=== PATIENT | female | born 1935 | race Caucasian/White ===

== ENCOUNTER 2017-01-24 20:18 | Inpatient (IN) | payer MEDICARE, BC ==
[2017-01-24] MEDS ORDERED: SODIUM CHLORIDE 0.9% 1,000 ML IV STA (20:58)
[2017-01-24] MEDS ORDERED: RX INFO: IV CONTRAST WAS GIVEN 1 EACH MISC MISCELLANE PRN (20:59)
--- NOTE | 2017-01-24 21:21 | ED ---
General Adult HPI - General Chief complaint: Shortness of Breath Stated complaint: AGATHA Time Seen by Provider: 01/24/17 20:28 Source: EMS, RN notes reviewed, old records reviewed Mode of arrival: EMS - History of Present Illness Initial comments: This is a 81-year-old female to the ER for evaluation of shortness of breath. Patient has continued shortness of breath. Shortness of breath started after doing a workout this afternoon. Patient was swimming and doing aerobics like she doesn't normal basis. Patient states she didn't know more exercise and normal. Distress of breath did not begin to she soonest or exercise. Patient denies chest pain but continues to complain shores restless when taking a deep breath. No recent fevers or congestion October no sick contacts. Patient denies prior episode of similar symptoms. She did rest originally after the symptoms began but the shortness of breath has persisted. Patient thought she may have had low blood sugar did take a sugar pill with no help - Related Data Home Medications Medication Instructions Recorded Confirmed Aspirin 81 mg PO DAILY 11/18/13 01/24/17 Atorvastatin [Lipitor] 40 mg PO HS 11/18/13 01/24/17 Cholecalciferol [Vitamin D3] 1,000 unit PO DAILY 11/18/13 01/24/17 Isosorbide Mononitrate [Imdur] 30 mg PO DAILY 11/18/13 01/24/17 Levothyroxine Sodium [Synthroid] 50 mcg PO DAILY 11/18/13 01/24/17 Metoprolol Tartrate [Lopressor] 25 mg PO DAILY 11/18/13 01/24/17 Nitroglycerin Sl Tabs [Nitrostat] 0.4 mg SUBLINGUAL DIRECTED PRN 11/18/1310/05 [place]-3 Fatty Acids [[place]-3] 1,000 mg PO DAILY 11/18/13 01/24/17 metFORMIN HCL [Glucophage] 500 mg PO BID 11/18/13 01/24/17 Pioglitazone [Actos] 15 mg PO DAILY 11/19/16 01/24/17 Acetaminophen [Tylenol] 325 mg PO Q4H PRN 01/24/17 01/24/17 FLUoxetine HCL [PROzac] 20 mg PO DAILY 01/24/17 01/24/17 Flaxseed Oil [[place]-3 Flaxseed Oil] 1,000 mg PO DAILY 01/24/17 01/24/17 Levothyroxine Sodium [Synthroid] 75 mcg PO DIRECTED 01/24/17 01/24/17 Losartan Potassium [Cozaar] 50 mg PO DAILY 01/24/17 01/24/17 Multivitamins, Thera [Multivitamin 1 tab PO DAILY 01/24/17 01/24/17 (formulary)] Omeprazole Magnesium [Prilosec OTC] 10 mg PO DAILY 01/24/17 01/24/17 Ranitidine HCl [Zantac] 75 mg PO Q48H 01/24/17 01/24/17 diphenhydrAMINE HCL [Benadryl] 25 mg PO HS PRN 01/24/17 01/24/17 Allergies Allergy/AdvReac Type Severity Reaction Status Date / Time Sulfa (Sulfonamide Allergy Rash/Hives Verified 01/24/17 21:03 Antibiotics) quinapril [From Accupril] AdvReac Nausea & Verified 01/25/17 02:31 Vomiting Review of Systems ROS Statement: Those systems with pertinent positive or pertinent negative responses have been documented in the HPI. ROS Other: All systems not noted in ROS Statement are negative. Past Medical History Past Medical History: Diabetes Mellitus, Hyperlipidemia, Hypertension Additional Past Medical History / Comment(s): diverticulitis sleep apnea l ventricular hypertrophy ra History of Any Multi-Drug Resistant Organisms: None Reported Past Surgical History: Adenoidectomy, Orthopedic Surgery, Tonsillectomy Additional Past Surgical History / Comment(s): cateracts Past Psychological History: No Psychological Hx Reported Smoking Status: Never smoker Past Alcohol Use History: None Reported Past Drug Use History: None Reported - Past Family History Daughter(s) Family Medical History: Cancer Additional Family Medical History / Comment(s): brain stem cancer; Mother Family Medical History: Diabetes Mellitus Additional Family Medical History / Comment(s): General Exam General appearance: alert, in no apparent distress Head exam: Present: atraumatic, normocephalic, normal inspection Eye exam: Present: normal appearance, PERRL, EOMI. Absent: scleral icterus, conjunctival injection, periorbital swelling ENT exam: Present: normal exam, mucous membranes moist Neck exam: Present: normal inspection. Absent: tenderness, meningismus, lymphadenopathy Respiratory exam: Present: normal lung sounds bilaterally. Absent: respiratory distress, wheezes, rales, rhonchi, stridor Cardiovascular Exam: Present: regular rate, normal rhythm, normal heart sounds. Absent: systolic murmur, diastolic murmur, rubs, gallop, clicks GI/Abdominal exam: Present: soft, normal bowel sounds. Absent: distended, tenderness, guarding, rebound, rigid Extremities exam: Present: normal inspection, full ROM, normal capillary refill. Absent: tenderness, pedal edema, joint swelling, calf tenderness Back exam: Present: normal inspection Neurological exam: Present: alert, oriented X3, CN II-XII intact Psychiatric exam: Present: normal affect, normal mood Skin exam: Present: warm, dry, intact, normal color. Absent: rash Course Vital Signs 01/24/17 01/24/17 01/24/17 20:29 21:29 22:23 Temperature 97.1 F L Pulse Rate 67 60 Respiratory 18 18 18 Rate Blood Pressure 204/84 183/77 O2 Sat by Pulse 96 98 Oximetry 01/24/17 01/25/17 01/25/17 23:28 00:13 00:16 Temperature 97.6 F Pulse Rate 62 65 61 Respiratory 18 18 Rate Blood Pressure 173/68 163/72 O2 Sat by Pulse 97 98 Oximetry 01/25/17 01/25/17 00:27 01:19 Temperature 97.8 F Pulse Rate 63 79 Respiratory 18 Rate Blood Pressure 156/65 O2 Sat by Pulse 96 Oximetry - Reevaluation(s) Reevaluation #1: 01/24/17 22:41 Patient has no pain, is in no respiratory distress although continues to feel short of breath Reevaluation #2: 01/24/17 22:41 Patient denies any symptoms of anxiety EKG Findings - EKG Comments: EKG Findings:: EKG shows normal sinus rhythm rate of 62, RI 176, QRS 86, QTC 481 Medical Decision Making - Medical Decision Making 81-year-old female in the ER for evaluation shortness of breath, increasing shortness of breath strength afternoon. Patient does have positive findings of pneumonia. We'll admit for breathing treatments, IV antibiotics. Patient's nephew comfortable going home. No chest at this time - Lab Data Result diagrams: 01/24/17 22:06 01/24/17 22:06 Lab Results 01/24/17 01/24/1717 Range/Units 22:06 22:06 22:06 WBC 7.7 (3.8-10.6) k/uL RBC 3.82 (3.80-5.40) m/uL Hgb 12.2 (11.4-16.0) gm/dL Hct 38.7 (34.0-46.0) % MCV 101.2 H (80.0-100.0) fL MCH 32.1 (25.0-35.0) pg MCHC 31.7 (31.0-37.0) g/dL RDW 14.3 (11.5-15.5) % Plt Count 188 (150-450) k/uL Neutrophils % 63 % Lymphocytes % 27 % Monocytes % 6 % Eosinophils % 2 % Basophils % 1 % Neutrophils # 4.8 (1.3-7.7) k/uL Lymphocytes # 2.1 (1.0-4.8) k/uL Monocytes # 0.4 (0-1.0) k/uL Eosinophils # 0.2 (0-0.7) k/uL Basophils # 0.0 (0-0.2) k/uL Macrocytosis Slight PT 11.2 (9.0-12.0) sec INR 1.1 (<1.2) APTT 22.9 (22.0-30.0) sec D-Dimer 0.66 H (<0.60) mg/L FEU Sodium 139 (137-145) mmol/L Potassium 4.4 (3.5-5.1) mmol/L Chloride 104 (98-107) mmol/L Carbon Dioxide 24 (22-30) mmol/L Anion Gap 11 mmol/L BUN 21 H (7-17) mg/dL Creatinine 0.95 (0.52-1.04) mg/dL Est GFR (MDRD) Af Amer >60 (>60 ml/min/1.73 sqM) Est GFR (MDRD) Non-Af 56 (>60 ml/min/1.73 sqM) Glucose 158 H (74-99) mg/dL Calcium 8.9 (8.4-10.2) mg/dL Magnesium 1.7 (1.6-2.3) mg/dL Total Bilirubin 0.3 (0.2-1.3) mg/dL AST 50 H (14-36) U/L ALT 54 H (9-52) U/L Alkaline Phosphatase 47 (38-126) U/L Total Creatine Kinase (30-135) U/L CK-MB (CK-2) (0.0-2.4) ng/mL CK-MB (CK-2) Rel Index Troponin I (0.000-0.034) ng/mL NT-Pro-B Natriuret Pep pg/mL Total Protein 7.0 (6.3-8.2) g/dL Albumin 3.8 (3.5-5.0) g/dL 01/24/17 01/24/17 Range/Units 22:06 22:06 WBC (3.8-10.6) k/uL RBC (3.80-5.40) m/uL Hgb (11.4-16.0) gm/dL Hct (34.0-46.0) % MCV (80.0-100.0) fL MCH (25.0-35.0) pg MCHC (31.0-37.0) g/dL RDW (11.5-15.5) % Plt Count (150-450) k/uL Neutrophils % % Lymphocytes % % Monocytes % % Eosinophils % % Basophils % % Neutrophils # (1.3-7.7) k/uL Lymphocytes # (1.0-4.8) k/uL Monocytes # (0-1.0) k/uL Eosinophils # (0-0.7) k/uL Basophils # (0-0.2) k/uL Macrocytosis PT (9.0-12.0) sec INR (<1.2) APTT (22.0-30.0) sec D-Dimer (<0.60) mg/L FEU Sodium (137-145) mmol/L Potassium (3.5-5.1) mmol/L Chloride (98-107) mmol/L Carbon Dioxide (22-30) mmol/L Anion Gap mmol/L BUN (7-17) mg/dL Creatinine (0.52-1.04) mg/dL Est GFR (MDRD) Af Amer (>60 ml/min/1.73 sqM) Est GFR (MDRD) Non-Af (>60 ml/min/1.73 sqM) Glucose (74-99) mg/dL Calcium (8.4-10.2) mg/dL Magnesium (1.6-2.3) mg/dL Total Bilirubin (0.2-1.3) mg/dL AST (14-36) U/L ALT (9-52) U/L Alkaline Phosphatase (38-126) U/L Total Creatine Kinase 98 (30-135) U/L CK-MB (CK-2) 1.2 (0.0-2.4) ng/mL CK-MB (CK-2) Rel Index 1.2 Troponin I <0.012 (0.000-0.034) ng/mL NT-Pro-B Natriuret Pep 849 pg/mL Total Protein (6.3-8.2) g/dL Albumin (3.5-5.0) g/dL - Radiology Data Radiology results: report reviewed (CT positive for pneumonia), image reviewed Disposition Clinical Impression: Community acquired pneumonia Disposition: ADMITTED IP TO THIS [facility] Condition: Good
[2017-01-24 22:29] LABS: Basophils % (A) 1 %; CH 32.8; CHCM 32.6; Eosinophils # (A) 0.2 k/uL (0-0.7); Eosinophils % (A) 2 %; HCT 38.7 % (34.0-46.0); HDW 2.34; HGB 12.2 gm/dL (11.4-16.0); Luc # (Auto) 0.11; Luc % (Auto) 2; Lymphocytes # (A) 2.1 k/uL (1.0-4.8); Lymphocytes % (A) 27 %; MCH 32.1 pg (25.0-35.0); MCHC 31.7 g/dL (31.0-37.0); MCV 101.2 fL (80.0-100.0); Macrocytosis Slight; Mean Platelet Volume 7.3; Monocytes # (A) 0.4 k/uL (0-1.0); Monocytes % (A) 6 %; Neutrophils # (A) 4.8 k/uL (1.3-7.7); Neutrophils % (A) 63 %; RBC 3.82 m/uL (3.80-5.40); RDW 14.3 % (11.5-15.5); WBC 7.7 k/uL (3.8-10.6); WBC (Perox) 8.21
[2017-01-24 22:42] LABS: INR 1.1 (<1.2); Partial Thromboplastin Time 22.9 sec (22.0-30.0); Prothrombin Time 11.2 sec (9.0-12.0)
[2017-01-24 22:53] LABS: Creatine Kinase 98 U/L (30-135)
[2017-01-24 22:54] LABS: ALT 54 U/L (9-52); AST 50 U/L (14-36); Alkaline Phosphatase 47 U/L (38-126); Anion Gap 11 mmol/L; Blood Urea Nitrogen 21 mg/dL (7-17); Calcium 8.9 mg/dL (8.4-10.2); Carbon Dioxide 24 mmol/L (22-30); Chloride 104 mmol/L (98-107); Glucose 158 mg/dL (74-99); Magnesium 1.7 mg/dL (1.6-2.3); Non-African American GFR(MDRD) 56 (>60 ml/min/1.73 sqM); Potassium 4.4 mmol/L (3.5-5.1); Sodium 139 mmol/L (137-145); Total Bilirubin 0.3 mg/dL (0.2-1.3)
[2017-01-24 23:05] LABS: Creatine Kinase MB 1.2 ng/mL (0.0-2.4); Troponin I <0.012 ng/mL (0.000-0.034)
--- NOTE | 2017-01-24 23:51 | CT ---
EXAMINATION TYPE: CT angio chest DATE OF EXAM: 01/24/2017 11:31 PM COMPARISON: NONE HISTORY: shortness of breath. CT DLP: 413.60 mGycm Automated exposure control for dose reduction was used. CONTRAST: CTA scan of the thorax is performed with IV Contrast, patient injected with 75 mL of Omnipaque 350, p ulmonary embolism protocol. There are 3-D post processed images.. FINDINGS: There is mild reticular interstitial infiltrate in both lungs. There is subpleural coalescent density at the right lung base consistent with pneumonia and atelectasis. There is a hiatal hernia. Heart ap pears enlarged. There is bulkiness of the pulmonary nino with enlarged bronchial lymph node that measure up to 1.5 cm . I see no filling defects in the pulmonary arteries. There is no evidence of aortic aneurysm or diss ection. Thoracic aorta is atheromatous. There is spurring in the thoracic spine. There is minimal ple ural fluid on the right side. There is no focal bony destructive process. IMPRESSION: PATCHY PNEUMONIA IN THE RIGHT LOWER LOBE. BRONCHIAL ADENOPATHY. INTERSTITIAL PULMONARY INFILTRATES. T HIS COULD RELATE TO SARCOIDOSIS. NO EVIDENCE OF PULMONARY EMBOLISM. SMALL RIGHT PLEURAL EFFUSION. CAR DIOMEGALY. HIATAL HERNIA. 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
[2017-01-25] MEDS ORDERED: PNEUMONIA PROTOCOL UTILIZED 1 EACH MISC PO PRN (00:02)
[2017-01-25] MEDS ORDERED: LEVOFLOXACIN 750MG-D5W PMX 750 MG in DEXTROSE/WATER 1 150ML.BAG IVPB STA (00:02)
[2017-01-25] MEDS ORDERED: IPRATROPIUM-ALBUTEROL 3 ML NEB INHALATION STA (00:02)
[2017-01-25] MEDS: SODIUM CHLORIDE 0.9% 1,000 ML IV SCH ×3 (00:20→21:21)
[2017-01-25 07:45] LABS: Glucose,Whole Blood 143 mg/dL (75-99)
[2017-01-25] MEDS: ENOXAPARIN 40 MG/0.4 ML SYRINGE SQ SCH (07:59)
--- NOTE | 2017-01-25 08:17 | US ---
EXAMINATION TYPE: US venous doppler duplex LE LT DATE OF EXAM: 01/25/2017 8:08 AM COMPARISON: NONE CLINICAL HISTORY: Swelling left leg. SIDE PERFORMED: Left TECHNIQUE: The lower extremity deep venous system is examined utilizing real time linear array sonog mercedes with graded compression, doppler sonography and color-flow sonography. VESSELS IMAGED: External Iliac Vein (EIV) Common Femoral Vein Deep Femoral Vein Greater Saphenous Vein * Femoral Vein Popliteal Vein Small Saphenous Vein * Proximal Calf Veins (* superficial vessels) Left Leg: Negative for DVT No popliteal fossa lesion is seen. IMPRESSION: THIS EXAMINATION IS NEGATIVE FOR DVT WITHIN THE LEFT LEG.
[2017-01-25] MEDS: IPRATROPIUM-ALBUTEROL 3 ML NEB INHALATION SCH ×4 (08:49→20:04)
[2017-01-25] MEDS ORDERED: ACETAMINOPHEN TAB 325 MG TAB PO PRN (08:52)
[2017-01-25] MEDS ORDERED: diphenhydrAMINE 25 MG CAP PO PRN (08:52)
[2017-01-25] MEDS: PIOGLITAZONE 15 MG TAB PO SCH (10:55)
[2017-01-25] MEDS: ASPIRIN 81 MG PO SCH (10:56)
[2017-01-25] MEDS: LOSARTAN 50 MG TAB PO SCH (10:56)
[2017-01-25] MEDS: LEVOTHYROXINE 50 MCG TAB PO SCH (10:56)
[2017-01-25] MEDS: METOPROLOL TARTRATE 25 MG TAB PO SCH (10:56)
[2017-01-25] MEDS: ISOSORBIDE MONONITRATE ER 30 MG TAB.ER.24H PO SCH (10:56)
[2017-01-25] MEDS: FLUoxetine HCL 20 MG CAP PO SCH (10:56)
[2017-01-25] MEDS: PANTOPRAZOLE 40 MG TABLET PO SCH (10:57)
--- NOTE | 2017-01-25 12:04 | XR ---
EXAMINATION TYPE: XR chest 2V DATE OF EXAM: 01/25/2017 HISTORY: sob. REFERENCE: Previous study dated 11/06/2010. FINDINGS: Heart size is upper limits of normal. There is silhouetting of the left hemidiaphragm. The left CP angle is obscured. The right lung appears clear.. IMPRESSION: 1. BORDERLINE CARDIOMEGALY. 2. LEFT-SIDED EFFUSION. 3. I CANNOT EXCLUDE AN INFILTRATE IN THE RIGHT MIDDLE LOBE.
[2017-01-25 12:09] LABS: Glucose,Whole Blood 156 mg/dL (75-99)
--- NOTE | 2017-01-25 12:18 | P.CNPUL ---
History of Present Illness Consult date: 01/25/17 Reason for consult: dyspnea, cough, abnormal CXR/CT Chief complaint: shortness of breath History of present illness: consult dated 01/25/2017 This is a very pleasant 81-year-old female who has a history of hypertension diabetes hyperlipidemia. Sees Dr. Ponce as her primary doctor. Anyway the patient was well until yesterday when she apparently was swimming. She became short and short of breath. Initially she thought it was related to her heart. The patient appeared apparently attempted to take some nitroglycerin but didn't have any. In addition, she because of her diabetes she thought maybe she had a low blood sugar and apparently asked for some Coca-Cola and got a Gatorade. The Gatorade seemed to make things a bit better but not completely better. Subsequent to subsequent to that, she Went home and had to [facility]. That did not seem to improve things and at that time she checked her blood sugar and it was 179. Finally, because of worsening shortness of breath and a little bit of nonproductive cough, she called EMS and she was brought to the emergency room where she was evaluated and thought to have possible pneumonia. PE was ruled out. She did have a chest x-ray a Doppler of the lower extremities and a CT angiogram. CT angiogram apparently showed some adenopathy in the chest and possibly some infiltrate in the right middle or right lower lobe with a small effusion. Again she really had nothing to suggest pneumonia. No fever no chills. No cough no phlegm production. No wheezing. Nothing like that. She wasn't ill. This all started yesterday. Sudden onset. PE was not seen on CT angiogram. Dr. Ponce was the primary anastomosis to see the patient. She looks pretty comfortable sitting in bed. No particular complaints at this time. Review of Systems A 12 point review of system is positive for mostly shortness of breath and a bit little bit of cough and the cough is nonproductive. Prior to that she wasn' t ill. No fever no chills. No phlegm production. No chest congestion. No chest pain. Past Medical History Past Medical History: Diabetes Mellitus, Hyperlipidemia, Hypertension, Rheumatoid Arthritis (RA) Additional Past Medical History / Comment(s): diverticulitis sleep apnea l ventricular hypertrophy History of Any Multi-Drug Resistant Organisms: None Reported Past Surgical History: Adenoidectomy, Orthopedic Surgery, Tonsillectomy Additional Past Surgical History / Comment(s): cataract surgery; bilateral carpal tunnel surgery Past Anesthesia/Blood Transfusion Reactions: No Reported Reaction Past Psychological History: No Psychological Hx Reported Smoking Status: Never smoker Past Alcohol Use History: None Reported Past Drug Use History: None Reported - Past Family History Daughter(s) Family Medical History: Cancer Additional Family Medical History / Comment(s): brain stem cancer; Mother Family Medical History: Diabetes Mellitus Additional Family Medical History / Comment(s): Medications and Allergies Home Medications Medication Instructions Recorded Confirmed Type Aspirin 81 mg PO DAILY 11/18/13 01/24/17 History Atorvastatin [Lipitor] 40 mg PO HS 11/18/13 01/24/17 History Cholecalciferol [Vitamin D3] 1,000 unit PO DAILY 11/18/13 01/24/17 History Isosorbide Mononitrate [Imdur] 30 mg PO DAILY 11/18/13 01/24/17 History Levothyroxine Sodium [Synthroid] 50 mcg PO DAILY 11/18/13 01/24/17 History Metoprolol Tartrate [Lopressor] 25 mg PO DAILY 11/18/13 01/24/17 History Nitroglycerin Sl Tabs [Nitrostat] 0.4 mg SUBLINGUAL DIRECTED PRN 11/18/1310/05 History [place]-3 Fatty Acids [[place]-3] 1,000 mg PO DAILY 11/18/13 01/24/17 History metFORMIN HCL [Glucophage] 500 mg PO BID 11/18/13 01/24/17 History Pioglitazone [Actos] 15 mg PO DAILY 11/19/16 01/24/17 History Acetaminophen [Tylenol] 325 mg PO Q4H PRN 01/24/17 01/24/17 History FLUoxetine HCL [PROzac] 20 mg PO DAILY 01/24/17 01/24/17 History Flaxseed Oil [[place]-3 Flaxseed Oil] 1,000 mg PO DAILY 01/24/17 01/24/17 History Levothyroxine Sodium [Synthroid] 75 mcg PO DIRECTED 01/24/17 01/24/17 History Losartan Potassium [Cozaar] 50 mg PO DAILY 01/24/17 01/24/17 History Multivitamins, Thera [Multivitamin 1 tab PO DAILY 01/24/17 01/24/17 History (formulary)] Omeprazole Magnesium [Prilosec OTC] 10 mg PO DAILY 01/24/17 01/24/17 History Ranitidine HCl [Zantac] 75 mg PO Q48H 01/24/17 01/24/17 History diphenhydrAMINE HCL [Benadryl] 25 mg PO HS PRN 01/24/17 01/24/17 History Allergies Allergy/AdvReac Type Severity Reaction Status Date / Time Sulfa (Sulfonamide Allergy Rash/Hives Verified 01/24/17 21:03 Antibiotics) quinapril [From Accupril] AdvReac Nausea & Verified 01/25/17 02:31 Vomiting Physical Exam Osteopathic Statement: *. No significant issues noted on an osteopathic structural exam other than those noted in the History and Physical/Consult. Vitals: Vital Signs Temp Pulse Pulse Resp BP BP Pulse Ox 01/25/17 09:04 62 01/25/17 08:52 64 96 01/25/17 07:00 98.2 F 62 18 164/72 97 01/25/17 02:14 97.7 F 69 18 169/74 99 01/25/17 01:19 97.8 F 79 18 156/65 96 01/25/17 00:27 63 01/25/17 00:16 61 01/25/17 00:13 65 18 163/72 98 01/24/17 23:28 97.6 F 62 18 173/68 97 01/24/17 22:23 60 18 183/77 98 01/24/17 21:29 18 01/24/17 20:29 97.1 F L 67 18 204/84 96 Intake and Output 01/24/17 01/25/17 01/25/17 22:59 06:59 14:59 Other: Voiding Method Toilet Toilet # Voids 1 Weight 79.832 kg 81 kg No acute distress, oriented 3. HEENT examination is grossly unremarkable. Mucous membranes are moist. No oral lesions. Neck supple. Full range of motion. No adenopathy thyromegaly or neck vein distention. Cardiovascular examination reveals regular rhythm rate. S1-S2 normal. No S3 or S4. No discernible murmur noted. Lungs reveal clear breath sounds. Her sounds are equal bilaterally. No adventitious lung sounds including wheezes rhonchi or crackles. Abdomen soft bowel sounds are heard. No masses or tenderness. Extremities are intact. No cyanosis clubbing or edema. Skin is without rash or lesion. Neurologic examination is brief but nonfocal. Results - Laboratory Findings CBC and BMP: 01/24/17 22:06 01/24/17 22:06 PT/INR, D-dimer PT 11.2 sec (9.0-12.0) 01/24/17 22:06 INR 1.1 (<1.2) 01/24/17 22:06 D-Dimer 0.66 mg/L FEU (<0.60) H 01/24/17 22:06 Abnormal lab findings: Abnormal Labs 01/24/17 01/24/17 01/24/17 22:06 22:06 22:06 MCV 101.2 H D-Dimer 0.66 H BUN 21 H Glucose 158 H POC Glucose (mg/dL) AST 50 H ALT 54 H 01/25/17 01/25/17 07:42 12:02 MCV D-Dimer BUN Glucose POC Glucose (mg/dL) 143 H 156 H AST ALT - Diagnostic Findings Chest x-ray: image reviewed CT scan - chest: image reviewed (X-rays labs and medications are reviewed.) Assessment and Plan (1) Shortness of breath Status: Acute (2) Hypertension Status: Acute (3) Hyperlipidemia Status: Acute (4) Diabetes Status: Acute (5) Sleep apnea syndrome Status: Acute (6) Community acquired pneumonia Status: Acute Plan: plan dated 01/25/2017 The patient's clinical picture is not really consistent with pneumonia. I was not able to really look at the x-ray or the computed tomography scan as a viewing system but did not allow me to do it. I was able to read the reports. This might be an unusual presentation of pneumonia. Would likely put her on ammonia for community-acquired causes of pneumonia including Zithromax and Rocephin. Her on some breathing treatments well. The thoracic adenopathy may very well be reactive. Would evaluate her as an outpatient that should be adenopathy persists. Certainly sarcoidosis would be one explanation. Time with Patient: Greater than 30
[2017-01-25] MEDS: MULTIVITAMINS, THERA 1 EACH TAB PO SCH (12:32)
[2017-01-25] MEDS: CHOLECALCIFEROL 1,000 UNIT TAB PO SCH (12:32)
[2017-01-25 17:31] LABS: Glucose,Whole Blood 117 mg/dL (75-99)
--- NOTE | 2017-01-25 18:15 | HP ---
HISTORY AND PHYSICAL ATTENDING PHYSICIAN: Dr. Ponce. CHIEF COMPLAINT: Shortness of breath. HISTORY OF PRESENT ILLNESS: This is an 81-year-old female who was admitted to the hospital after presenting to the emergency room complaining of shortness of breath. The patient had gone for her usual exercises. She does water aerobics. After she got up, took a shower, she noticed that she was breathing rapidly. The patient intermittently felt short of breath. She thought she was hypoglycemic. She ate something. The patient dressed up and as she was walking to the care she was again feeling short of breath. The patient had somebody bring her a regular pop, which she drank. After a little while she felt better. She drove home. When she got out of the car, she again felt short of breath. The patient got home, had some marshmallows noticed her blood sugar was 179. The patient due to her symptoms not associated with any chest pain, cough, congestion, fever, chills, decided to be seen in the emergency room. In the emergency room, she was noted to have stable vital signs and good oxygenation with no reported abnormal clinical findings. The patient had a CT scan of the chest done to rule out pulmonary embolism and venous duplex study of the left leg, which revealed no evidence of DVT. The CT scan showed no evidence of pulmonary embolism. It is suggested a pneumonic infiltrate right lower lung. The patient is admitted to the hospital in view of that. She has no fever, chills, chest pain, no cough. No cough at the time of admission. She did develop some cough this morning intermittently. The patient feels fairly well today. The patient's cardiac enzyme was negative at the time of evaluation. EKG showed no acute changes. PAST MEDICAL HISTORY: Basically significant for history of diabetes mellitus type 2, hypertension, long- standing history of degenerative arthritis, history of obstructive sleep apnea on CPAP, glaucoma, gastroesophageal reflux, previously diagnosed with polymyalgia rheumatica with no active symptoms now. History of hyperlipidemia on medical therapy. History of depression adequately controlled. History of osteopenia. She had a cardiac catheterization noted as well. Coronary atherosclerosis but no evidence of any occlusions. History of degenerative arthritis. PAST SURGICAL HISTORY: Significant for tonsillectomy, bilateral carpal tunnel surgery, hemorrhoids and nasal septal deviation surgery. 3, para 3. FAMILY MEDICAL HISTORY: Daughter diseased. She had a history of brain tumor. She at the age of 44. She has 2 sons, one 55 with history of diabetes mellitus, one 47 in adequate health. The patient's 1 sister is . She was 78 with history of sepsis. Father at the age of 88. He had history of cerebrovascular disease. Mother at age of 92. She had a history of atherosclerotic heart disease and diabetes mellitus. SOCIAL HISTORY: Patient is , lives with spouse. She does exercise as mentioned above. ALLERGIES: SULFA. MEDICATIONS: Medications at present include: 1. Prilosec 20 mg daily. 2. Aspirin 81 mg daily. 3. Vitamin D daily. 4. [place]-3 fish oils daily. 5. Latanoprost 0.005% eyedrops 1 drop both eyes daily. 6. Levothyroxine 50 mcg daily. 7. Antivert 25 mg p.r.n. 8. 70 mg weekly. 9. Atorvastatin 40 mg daily. 10.Losartan 50 mg daily. 11.Metoprolol tartrate 25 mg b.i.d. 12.Prozac 20 mg daily. 13.Metformin 500 mg 2 times daily. PERSONAL HISTORY: Nonsmoker. Alcohol occasional. PHYSICAL EXAM: Vital signs reveals a temperature 98.2, pulse 62, respirations 18, blood pressure 164/72, pulse ox 97% on 2 L. HEENT: Normocephalic. Neck is supple. No JVD. Pupils are reactive. Oral cavity is moist. NECK: Supple with no JVD, carotid bruits, or thyromegaly. CHEST: Examination is clear to auscultation percussion. CARDIAC: Normal S1, S2 with no gallops, murmurs, or rubs. ABDOMEN: Soft. Bowel sounds present. No organomegaly. No abdominal bruits. Extremities reveal no edema. No tenderness. NEUROLOGICAL: Awake, alert, oriented with well-coordinated movements. LABORATORY ASSESSMENT: Normal CBC. D-dimer 0.66, BUN 21, creatinine 0.95, glucose 158, AST 50, ALT 54. Negative troponins. BNP 849. Albumin 3.8. CT scan showed no evidence of any pulmonary embolism. There is a right lower lobe, bronchial adenopathy, interstitial pulmonary infiltrates, which could relate to sarcoidosis with no evidence of pulmonary embolism. Small right pleural effusion. Cardiomegaly, hiatal hernia. There was underlying pulmonary interstitial fibrosis. There was no historical evidence of the patient having aspirated any water while she was swimming. ASSESSMENT: 1. Shortness of breath, transient etiology undetermined. 2. Possible pneumonia, though clinically no suggestion. The patient has no fever, no white count. No clinical findings and patient looks fairly well. 3. CT scan suggesting possible sarcoidosis with interstitial fibrosis, adenopathy. The patient has acute symptoms and the patient has no previous history of any sarcoidosis. 4. Diabetes mellitus, controlled. 5. Hypertension. PLAN: Continue present medical regimen. We will obtain an echocardiogram. We will also have Pulmonary see the patient. The patient's condition is discussed with the patient and family. The patient is on antibiotic. MMODL / IJN: [id number] /
[2017-01-25 20:44] LABS: Glucose,Whole Blood 191 mg/dL (75-99)
[2017-01-25] MEDS: ATORVASTATIN 40 MG TAB PO SCH (21:21)
[2017-01-25] MEDS ORDERED: LEVOFLOXACIN 750MG-D5W PMX 750 MG in DEXTROSE/WATER 1 150ML.BAG IVPB SCH (23:00)
[2017-01-26] MEDS: LEVOTHYROXINE 50 MCG TAB PO SCH (06:39)
[2017-01-26] MEDS: SODIUM CHLORIDE 0.9% 1,000 ML IV SCH (07:12)
[2017-01-26] MEDS: AZITHROMYCIN 500 MG TAB PO SCH (07:13)
[2017-01-26] MEDS: ASPIRIN 81 MG PO SCH (07:13)
[2017-01-26] MEDS: PANTOPRAZOLE 40 MG TABLET PO SCH (07:13)
[2017-01-26] MEDS: ENOXAPARIN 40 MG/0.4 ML SYRINGE SQ SCH (07:13)
[2017-01-26] MEDS: ISOSORBIDE MONONITRATE ER 30 MG TAB.ER.24H PO SCH (07:14)
[2017-01-26] MEDS: LOSARTAN 50 MG TAB PO SCH (07:14)
[2017-01-26] MEDS: FLUoxetine HCL 20 MG CAP PO SCH (07:14)
[2017-01-26] MEDS: IPRATROPIUM-ALBUTEROL 3 ML NEB INHALATION SCH ×4 (07:15→19:57)
[2017-01-26] MEDS: PIOGLITAZONE 15 MG TAB PO SCH (07:16)
[2017-01-26] MEDS: METOPROLOL TARTRATE 25 MG TAB PO SCH (07:16)
[2017-01-26 07:48] LABS: Glucose,Whole Blood 149 mg/dL (75-99)
--- NOTE | 2017-01-26 11:12 | P.PN ---
Subjective Progress Note Date: 01/26/17 Principal diagnosis: Shortness of breath Progress note dated 01/26/2017 81-year-old female who I saw yesterday in consultation. She has history of hypertension diabetes hyperlipidemia. Dr. Ponce as her primary doctor. For lack of a better diagnosis, we gave her a diagnosis of community-acquired pneumonia. She had a patchy infiltrate with suggested pneumonia although she really did not have the typical presentation clinically of pneumonia. The patient had a CT angiogram which was consistent with a right middle or right lower lobe infiltrate as well as a small effusion. There is also some thoracic adenopathy present this could be reactive. There is no PE seen. The patient seemed be doing relatively well. Still low short of breath. Some minimal cough. Minimal phlegm production. No fever no chills. I did speak to the primary today. Objective - Vital Signs Vital signs: Vital Signs Temp 97.1 F L 01/26/17 07:00 Pulse 106 H 01/26/17 08:00 Resp 20 01/26/17 07:00 BP 162/80 01/26/17 07:00 Pulse Ox 97 01/26/17 07:00 Intake & Output 01/25/17 01/26/17 01/26/17 18:59 06:59 18:59 Intake Total 1760 1200 Balance 1760 1200 Weight 81 kg Intake: IV 1200 Sodium Chloride 0.9% 1, 1200 000 ml @ 100 mls/hr IV . Q10H [facility] Rx#:[id number] Intake, IV Titration 1100 Amount Sodium Chloride 0.9% 1, 1000 000 ml @ 100 mls/hr IV . Q10H [facility] Rx#:[id number] cefTRIAXone 1,000 mg In 100 Sodium Chloride 0.9% 50 ml @ 100 mls/hr IVPB Q24HR [facility] Rx#:[id number] Oral 660 Other: Voiding Method Toilet Toilet Toilet # Voids 3 - Exam No acute distress, oriented 3 HEENT examination is unremarkable. Mucous membranes are moist. No oral lesions. Neck supple. Full range of motion. No adenopathy or thyromegaly. Neck veins are flat. Cardiovascular examination reveals regular rhythm rate. S1-S2 normal. No S3 or S4. No discernible murmur. Lungs reveal a few scattered rhonchi. Lung examination is not really impressive. Breath sounds are equal bilaterally. No wheezes. No crackles. Abdomen soft bowel sounds are heard. No masses or tenderness. Extremities are intact. No cyanosis clubbing or edema. Skin is without rash or lesion. Neurologic examination is brief but nonfocal. - Labs CBC & Chem 7: 01/24/17 22:06 01/24/17 22:06 Labs: Abnormal Lab Results - Last 24 Hours (Table) 01/25/17 01/25/17 01/25/17 Range/Units 12:02 17:25 20:27 POC Glucose (mg/dL) 156 H 117 H 191 H (75-99) mg/dL 01/26/17 Range/Units 07:46 POC Glucose (mg/dL) 149 H (75-99) mg/dL Microbiology - Last 24 Hours (Table) 01/25/17 00:00 Blood Culture - Preliminary Blood No Growth after 24 hours 01/25/17 00:10 Blood Culture - Preliminary Blood No Growth after 24 hours Assessment and Plan (1) Shortness of breath Status: Acute (2) Hypertension Status: Acute (3) Hyperlipidemia Status: Acute (4) Diabetes Status: Acute (5) Sleep apnea syndrome Status: Acute (6) Community acquired pneumonia Status: Acute Plan: plan dated 01/25/2017 The patient's clinical picture is not really consistent with pneumonia. I was not able to really look at the x-ray or the computed tomography scan as a viewing system but did not allow me to do it. I was able to read the reports. This might be an unusual presentation of pneumonia. Would likely put her on ammonia for community-acquired causes of pneumonia including Zithromax and Rocephin. Her on some breathing treatments well. The thoracic adenopathy may very well be reactive. Would evaluate her as an outpatient that should be adenopathy persists. Certainly sarcoidosis would be one explanation. Plan dated 01/26/2017 The patient seems to be a bit better today. Less short of breath. Still coughing a bit. A few small amounts of sputum produced. I did speak to the primary today. Chest x-ray and CAT scan is reviewed. Findings most consistent with community-acquired pneumonia. Medications are appropriate. Thoracic adenopathy is likely reactive. This will have to be followed though when she improves. Time with Patient: Less than 30
[2017-01-26] MEDS: MULTIVITAMINS, THERA 1 EACH TAB PO SCH (11:20)
[2017-01-26] MEDS: CHOLECALCIFEROL 1,000 UNIT TAB PO SCH (11:20)
[2017-01-26 11:55] LABS: Glucose,Whole Blood 160 mg/dL (75-99)
--- NOTE | 2017-01-26 12:05 | PN ---
PROGRESS NOTE ATTENDING PHYSICIAN: Dr. Gissel Ponce. CHIEF COMPLAINT: Re-evaluation. HISTORY OF PRESENT ILLNESS: 81-year-old female was admitted to the hospital with shortness of breath. On CT scan noted to have evidence suggestive of pneumonia and associated with some pulmonary fibrosis, lymphadenopathy. The patient has been seen by Pulmonary. They feel the patient has pneumonia. It is unusual presentation. The patient has had no fever, chills, chest pain, cough at the time of evaluation. Subsequently, the patient has developed a barking type of cough. She denies any fever or chills. She feels fairly well. Denies much shortness of breath. She has been up walking. Vital signs have been stable. REVIEW OF SYSTEMS: Neuro: Denies any headaches, dizziness. Psych: No anxiety. Cardiac no chest pain, angina or palpitation. Respiratory: No shortness of breath. Mild cough. No hemoptysis. GI no nausea, vomiting, abdominal pain, diarrhea. no symptoms of dysuria, hematuria, urgency, frequency. EXTREMITIES: Denies pain, edema. Constitutional: No fever or chills. PHYSICAL EXAMINATION: Pleasant female in no distress. VITAL SIGNS: Temperature 97.1, pulse 67, respirations 20, blood pressure 162/80, heart rate had done up to 106 at 8 o'clock, subsequently down. HEENT: Normocephalic. Neck no JVD. CHEST: Clear to auscultation with no rhonchi, wheezing, or rubs. CARDIAC: Normal S1, S2 with no gallops, murmurs. ABDOMEN: Soft. Bowel sounds present. EXTREMITIES: Trace edema left lower leg and foot ankle area. The patient has a superficial skin ulceration on the left lower leg. No evidence of cellulitis. LABORATORY ASSESSMENT: Accu-Cheks which were in adequate range. ASSESSMENT: 1. Right lower lobe pneumonia. 2. Diabetes mellitus, controlled. 3. Stable coronary artery disease. 4. Possible underlying mild pulmonary fibrosis. PLAN: The patient is stable. Continue present medical regimen. Patient's condition discussed with the patient. Also was discussed with the net mobile developer, Dr. Cobian. MMODL / LORAINEN: [id number] /
[2017-01-26 17:42] LABS: Glucose,Whole Blood 134 mg/dL (75-99)
[2017-01-26 20:33] LABS: Glucose,Whole Blood 206 mg/dL (75-99)
[2017-01-26] MEDS: ATORVASTATIN 40 MG TAB PO SCH (20:47)
[2017-01-27] MEDS: LEVOTHYROXINE 50 MCG TAB PO SCH (06:09)
[2017-01-27 08:08] LABS: Glucose,Whole Blood 109 mg/dL (75-99)
[2017-01-27] MEDS: PIOGLITAZONE 15 MG TAB PO SCH (08:08)
[2017-01-27] MEDS: AZITHROMYCIN 500 MG TAB PO SCH (08:08)
[2017-01-27] MEDS: FLUoxetine HCL 20 MG CAP PO SCH (08:08)
[2017-01-27] MEDS: PANTOPRAZOLE 40 MG TABLET PO SCH (08:08)
[2017-01-27] MEDS: ISOSORBIDE MONONITRATE ER 30 MG TAB.ER.24H PO SCH (08:08)
[2017-01-27] MEDS: METOPROLOL TARTRATE 25 MG TAB PO SCH (08:08)
[2017-01-27] MEDS: LOSARTAN 50 MG TAB PO SCH (08:08)
[2017-01-27] MEDS: ENOXAPARIN 40 MG/0.4 ML SYRINGE SQ SCH (08:09)
[2017-01-27] MEDS: ASPIRIN 81 MG PO SCH (08:09)
--- NOTE | 2017-01-27 08:14 | XR ---
EXAMINATION TYPE: XR chest 2V DATE OF EXAM: 01/27/2017 COMPARISON: 01/25/2017 TECHNIQUE: PA and lateral views submitted. HISTORY: Follow-up pneumonia FINDINGS: Heart size prominent. No pneumothorax. Biapical pleural thickening. There are small bilateral pleural effusions and degenerative change spine. Basilar subsegmental consolidation stable. No overt failure . IMPRESSION: 1. Stable small bilateral pleural effusions subsegmental infiltrate.
[2017-01-27 08:33] LABS: Basophils % (A) 1 %; CH 32.1; CHCM 31.6; Eosinophils # (A) 0.2 k/uL (0-0.7); Eosinophils % (A) 3 %; HCT 35.1 % (34.0-46.0); HGB 11.1 gm/dL (11.4-16.0); Luc # (Auto) 0.11; Luc % (Auto) 2; Lymphocytes # (A) 1.3 k/uL (1.0-4.8); Lymphocytes % (A) 24 %; MCH 32.5 pg (25.0-35.0); MCHC 31.8 g/dL (31.0-37.0); MCV 102.2 fL (80.0-100.0); Macrocytosis Slight; Mean Platelet Volume 6.8; Monocytes # (A) 0.3 k/uL (0-1.0); Monocytes % (A) 6 %; Neutrophils # (A) 3.6 k/uL (1.3-7.7); Neutrophils % (A) 65 %; RBC 3.43 m/uL (3.80-5.40); WBC 5.6 k/uL (3.8-10.6); WBC (Perox) 5.93
[2017-01-27 08:37] VITALS: RESP 16; TEMP 98.1
[2017-01-27] MEDS: IPRATROPIUM-ALBUTEROL 3 ML NEB INHALATION SCH ×2 (09:10→12:24)
[2017-01-27 09:47] VITALS: BP 180/72
--- NOTE | 2017-01-27 11:09 | ECHOF ---
Referral Reason:sob MEASUREMENTS -------- HEIGHT: 152.4 cm WEIGHT: 80.7 kg BP: 130/50 IVSd: 1.3 cm (0.6 - 1.1) LVIDd: 3.9 cm (3.9 - 5.3) LVPWd: 1.2 cm (0.6 - 1.1) IVSs: 1.6 cm LVIDs: 2.8 cm LVPWs: 1.4 cm LA Diam: 3.7 cm (2.7 - 3.8) LAESV Index (A-L): 34.47 ml/m Ao Diam: 2.7 cm (2.0 - 3.7) AV Cusp: 1.6 cm (1.5 - 2.6) LA Diam: 3.8 cm (2.7 - 3.8) MV EXCURSION: 12.148 mm (> 18.000) MV EF SLOPE: 64 mm/s (70 - 150) EPSS: 0.1 cm MV E Stuart: 0.74 m/s MV DecT: 200 ms MV A Stuart: 0.69 m/s MV E/A Ratio: 1.07 RAP: 5.00 mmHg RVSP: 31.96 mmHg FINDINGS -------- Sinus rhythm. This was a technically adequate study. The left ventricular size is normal. Left ventricular wall thickness is normal. Overall left ventricular systolic function is normal with, an EF between 55 - 60 %. The right ventricle is normal in size. LA is moderately dilated 34-39 ml/m2 The right atrial size is normal. There is mild aortic valve sclerosis. There is no evidence of aortic regurgitation. Mild mitral regurgitation is present. Mild tricuspid regurgitation present. There is mild pulmonary hypertension. The right ventricular systolic pressure, as measured by Doppler, is 31.96mmHg. There is no pulmonic regurgitation present. The aortic root size is normal. There is no pericardial effusion. CONCLUSIONS -------- 1. The left ventricular size is normal. 2. The aortic root size is normal. 3. There is no pericardial effusion. 4. Left ventricular wall thickness is normal. 5. Overall left ventricular systolic function is normal with, an EF between 55 - 60 %. 6. LA is moderately dilated 34-39 ml/m2 7. There is mild aortic valve sclerosis. 8. Mild mitral regurgitation is present. 9. Mild tricuspid regurgitation present. 10. The right ventricular systolic pressure, as measured by Doppler, is 31.96mmHg. 11. There is no pulmonic regurgitation present. CELLARS SUPERVISOR: Ale Leon RDCS
[2017-01-27 11:44] LABS: Glucose,Whole Blood 97 mg/dL (75-99)
[2017-01-27 12:39] VITALS: PULSE 76
[2017-01-27] MEDS: CHOLECALCIFEROL 1,000 UNIT TAB PO SCH (13:09)
[2017-01-27] MEDS: MULTIVITAMINS, THERA 1 EACH TAB PO SCH (13:09)
--- NOTE | 2017-01-27 13:26 | P.PN ---
Subjective 81-year-old female who I saw yesterday in consultation. She has history of hypertension diabetes hyperlipidemia. Dr. Ponce as her primary doctor. The patient had a patchy infiltrate with suggested pneumonia although she really did not have the typical presentation clinically of pneumonia. The patient had a CT angiogram which was consistent with a right middle or right lower lobe infiltrate as well as a small effusion. There is also some thoracic adenopathy present this could be reactive. There is no PE seen. The patient seemed be doing relatively well. Still low short of breath. Some minimal cough. Minimal phlegm production. No fever no chills. On 01/27/2017 the patient is being seen in follow-up. The patient is still having some limited shortness of breath with exertion. For the most part she is improving. No fever. No chills. No night sweats. The blood cultures of been negative. The white cell count is not elevated. No other significant events over the past 24 hours. Patient also has obstructive sleep apnea and she is currently utilizing his CPAP machine. The patient follows up with me at the sleep center. Objective - Vital Signs Vital signs: Vital Signs Temp 98.1 F 01/27/17 07:00 Pulse 76 01/27/17 12:34 Resp 16 01/27/17 07:00 BP 180/72 01/27/17 09:46 Pulse Ox 94 L 01/27/17 07:00 Intake & Output 01/26/17 01/27/17 01/27/17 18:59 06:59 18:59 Intake Total 1100 500 Balance 1100 500 Weight 81 kg Intake: IV 200 Sodium Chloride 0.9% 1, 200 000 ml @ 100 mls/hr IV . Q10H [facility] Rx#:[id number] Intake, IV Titration 50 Amount cefTRIAXone 1,000 mg In 50 Sodium Chloride 0.9% 50 ml @ 100 mls/hr IVPB Q24HR [facility] Rx#:[id number] Oral 850 500 Other: Voiding Method Toilet Toilet # Voids 3 1 - Exam No acute distress, oriented 3 HEENT examination is unremarkable. Mucous membranes are moist. No oral lesions. Neck supple. Full range of motion. No adenopathy or thyromegaly. Neck veins are flat. Cardiovascular examination reveals regular rhythm rate. S1-S2 normal. No S3 or S4. No discernible murmur. Lungs reveal a few scattered rhonchi. Lung examination is not really impressive. Breath sounds are equal bilaterally. No wheezes. No crackles. Abdomen soft bowel sounds are heard. No masses or tenderness. Extremities are intact. No cyanosis clubbing or edema. Skin is without rash or lesion. Neurologic examination is brief but nonfocal. - Labs CBC & Chem 7: 01/27/17 07:38 01/24/17 22:06 Labs: Abnormal Lab Results - Last 24 Hours (Table) 01/26/17 01/26/17 01/27/17 Range/Units 17:38 20:31 07:38 RBC 3.43 L (3.80-5.40) m/uL Hgb 11.1 L (11.4-16.0) gm/dL MCV 102.2 H (80.0-100.0) fL POC Glucose (mg/dL) 134 H 206 H (75-99) mg/dL 01/27/17 Range/Units 07:57 RBC (3.80-5.40) m/uL Hgb (11.4-16.0) gm/dL MCV (80.0-100.0) fL POC Glucose (mg/dL) 109 H (75-99) mg/dL Microbiology - Last 24 Hours (Table) 01/25/17 00:00 Blood Culture - Preliminary Blood No Growth after 48 hours 01/25/17 00:10 Blood Culture - Preliminary Blood No Growth after 48 hours Assessment and Plan Plan: Assessment 1 suspected bibasilar pulmonary infiltrates, improving and the patient is currently and accommodation Rocephin and Zithromax. Clinically improved and the patient is not having any signs of septicemia or ongoing pneumonia for now 2 obstructive sleep apnea maintained on CPAP therapy on outpatient basis 3 venous mellitus type II 4 hypertension 5 osteoarthritis 6 glaucoma 7 acid reflux 8 polymalgia rheumatica 9 hyperlipidemia Plan Patient is improving. No active pulmonary issues. Reviewed the chest x-rays. Reviewed the CAT scan of the chest. Limited small bibasilar pleural effusions. Agree on discharging this patient home on antibiotics. All of the cultures of been negative. We'll see her in the office regarding her sleep apnea.
--- NOTE | 2017-02-02 08:56 | P.DS ---
Providers Date of admission: 01/25/17 00:02 Expected date of discharge: 01/27/17 Attending physician: Brendon Ponce Consults: 01/25/17 10:47 Consult Physician Routine Consulting Provider: Constantin Garcia Consult Reason/Comments: sob Do you want consulting provider notified?: Yes Primary care physician: Brendon Ponce [facility] Course: This 81-year-old female who is presenting with a complaint of shortness of breath to the emergency room. The patient evaluation included CAT scan of the chest to rule out pulmonary embolus. CAT scan suggested the patient had a right lower lobe infiltrate. The patient no white count and no fever and appear not ill. Patient however due to her symptoms is admitted to the hospital and started on IV antibiotics. She was started on Levaquin to the emergency room. The patient due to the paucity of findings on clinical examination was referred to pulmonary for further evaluation as the patient also on the cath was noted to have evidence of suggestive of some pulmonary fibrosis and lymphadenopathy. Patient has no previous history of sarcoidosis. The patient's symptoms were acute. They occurred just after she had done water aerobics. She denied any symptoms to suggest aspiration. The patient responded to treatment with updrafts and oxygen IV fluids and antibiotics. Antibiotics were switched to Zithromax and Rocephin. Patient chest x-ray repeat did show some left lower lobe infiltrate as well. The patient and no other associated symptoms home. She was not hypoxic she was ablated without difficulty. The patient's discharged on Zithromax and will be followed up in the outpatient. The abnormal CAT scan findings. Patient has been educated about this. Patient Condition at Discharge: Good Plan - Discharge Summary New Discharge Prescriptions: New Azithromycin [Zithromax] 500 mg PO DAILY #7 tab Continue Nitroglycerin Sl Tabs [Nitrostat] 0.4 mg SUBLINGUAL DIRECTED PRN PRN Reason: Chest Pain Isosorbide Mononitrate [Imdur] 30 mg PO DAILY Cholecalciferol [Vitamin D3] 1,000 unit PO DAILY Atorvastatin [Lipitor] 40 mg PO HS metFORMIN HCL [Glucophage] 500 mg PO BID Metoprolol Tartrate [Lopressor] 25 mg PO DAILY Levothyroxine Sodium [Synthroid] 50 mcg PO DAILY Aspirin 81 mg PO DAILY Hildale-3 Fatty Acids [Hildale-3] 1,000 mg PO DAILY Pioglitazone [Actos] 15 mg PO DAILY diphenhydrAMINE HCL [Benadryl] 25 mg PO HS PRN PRN Reason: Allergy Symptoms Acetaminophen [Tylenol] 325 mg PO Q4H PRN PRN Reason: Pain Multivitamins, Thera [Multivitamin (formulary)] 1 tab PO DAILY Flaxseed Oil [Hildale-3 Flaxseed Oil] 1,000 mg PO DAILY Levothyroxine Sodium [Synthroid] 75 mcg PO DIRECTED FLUoxetine HCL [PROzac] 20 mg PO DAILY Losartan Potassium [Cozaar] 50 mg PO DAILY Ranitidine HCl [Zantac] 75 mg PO Q48H Omeprazole Magnesium [Prilosec OTC] 10 mg PO DAILY Discharge Medication List Aspirin 81 mg PO DAILY 11/18/13 [History] Atorvastatin [Lipitor] 40 mg PO HS 11/18/13 [History] Cholecalciferol [Vitamin D3] 1,000 unit PO DAILY 11/18/13 [History] Isosorbide Mononitrate [Imdur] 30 mg PO DAILY 11/18/13 [History] Levothyroxine Sodium [Synthroid] 50 mcg PO DAILY 11/18/13 [History] Metoprolol Tartrate [Lopressor] 25 mg PO DAILY 11/18/13 [History] Nitroglycerin Sl Tabs [Nitrostat] 0.4 mg SUBLINGUAL DIRECTED PRN 11/18/13 [ History] Hildale-3 Fatty Acids [Hildale-3] 1,000 mg PO DAILY 11/18/13 [History] metFORMIN HCL [Glucophage] 500 mg PO BID 11/18/13 [History] Pioglitazone [Actos] 15 mg PO DAILY 11/19/16 [History] Acetaminophen [Tylenol] 325 mg PO Q4H PRN 01/24/17 [History] FLUoxetine HCL [PROzac] 20 mg PO DAILY 01/24/17 [History] Flaxseed Oil [Hildale-3 Flaxseed Oil] 1,000 mg PO DAILY 01/24/17 [History] Levothyroxine Sodium [Synthroid] 75 mcg PO DIRECTED 01/24/17 [History] Losartan Potassium [Cozaar] 50 mg PO DAILY 01/24/17 [History] Multivitamins, Thera [Multivitamin (formulary)] 1 tab PO DAILY 01/24/17 [History ] Omeprazole Magnesium [Prilosec OTC] mg PO DAILY 01/24/17 [History] Ranitidine HCl [Zantac] 75 mg PO Q48H 01/24/17 [History] diphenhydrAMINE HCL [Benadryl] 25 mg PO HS PRN 01/24/17 [History] Azithromycin [Zithromax] 500 mg PO DAILY #7 tab 01/27/17 [Rx] Follow up Appointment(s)/Referral(s): Brendon Ponce MD [Primary Care Provider] - 01/30/17 10:30 am Constantin Garcia MD [STAFF PHYSICIAN] - 02/06/17 8:45 am Patient Instructions/Handouts: Azithromycin (By mouth), Sleep Apnea (DC), Chronic Hypertension (DC), Community Acquired Pneumonia (DC), Hyperlipidemia (DC ) Discharge Disposition: HOME SELF-CARE
== END 2017-01-27 13:45 | disposition home or self-care (01) | DRG 195 ==
LOC: EC 20:18 → 5MS5E 01-25 00:02
PROVIDERS: ADMIT Internal Medicine; ATTEND Internal Medicine
DX: J18.9 Pneumonia, unspecified organism (principal); J84.10 Pulmonary fibrosis, unspecified; D86.9 Sarcoidosis, unspecified; E11.9 Type 2 diabetes mellitus without complications; I10 Essential (primary) hypertension; G47.33 Obstructive sleep apnea (adult) (pediatric); H40.9 Unspecified glaucoma; I25.10 Atherosclerotic heart disease of native coronary artery without angina pectoris; K21.9 Gastro-esophageal reflux disease without esophagitis; M19.90 Unspecified osteoarthritis, unspecified site; M35.3 Polymyalgia rheumatica; E78.5 Hyperlipidemia, unspecified; M85.80 Other specified disorders of bone density and structure, unspecified site; M06.9 Rheumatoid arthritis, unspecified; Z90.49 Acquired absence of other specified parts of digestive tract; Z88.2 Allergy status to sulfonamides; Z88.8 Allergy status to other drugs, medicaments and biological substances; Z79.82 Long term (current) use of aspirin; Z79.899 Other long term (current) drug therapy; Z79.84 Long term (current) use of oral hypoglycemic drugs; Z83.3 Family history of diabetes mellitus; Z82.49 Family history of ischemic heart disease and other diseases of the circulatory system; Z80.8 Family history of malignant neoplasm of other organs or systems; Z86.69 Personal history of other diseases of the nervous system and sense organs
CPT/HCPCS: 36415; 71020; 71275; 80053; 82550; 82553; 83735; 83880; 84484; 85025; 85379; 85610; 85730; 87040; 93005; 93306; 94640; 96361; 96365; 99285